=== PATIENT | male | born 1955 | race Caucasian/White ===

== ENCOUNTER 2017-09-12 15:34 | Inpatient (IN) | payer BC ==
[~2017-09-12] VITALS: Ht 165.1 cm; Wt 74.2 kg
[2017-09-12 16:40] LABS: BASOPHIL % 0.6 % (0-2); PLATELET COUNT 388 x10^3mcL (130-400)
[2017-09-12 16:45] LABS: RED CELL DISTRIBUTION WIDTH 17.1 % (11.5-14.5)
[2017-09-12 17:39] LABS: CALCIUM 9.2 mg/dL (8.5-10.1); CHLORIDE SERUM 98 mmol/L (98-107); CREATININE SERUM 2.4 mg/dL (0.7-1.3); GFR1 29 mL/min; GLUCOSE SERUM 242 mg/dL (74-106); POTASSIUM SERUM 3.1 mmol/L (3.5-5.1); SODIUM SERUM 141 mmol/L (136-145)
[2017-09-12 17:43] LABS: ALBUMIN 4.1 g/dL (3.4-5.0); ALKALINE PHOSPHATASE 85 U/L (46-116); ALT/SGPT 24 U/L (16-63); AST/SGOT 19 U/L (15-37); BILIRUBIN TOTAL 0.48 mg/dL (0.20-1.00); LIPASE 215 IU/L (73-393); TOTAL PROTEIN, SERUM 8.9 g/dL (6.4-8.2)
[2017-09-12 20:35] VITALS: BP 142/64
[2017-09-12 20:39] VITALS: Ht 165.1 cm; Wt 74.2 kg
[2017-09-12] MEDS ORDERED: EPO10I IV (21:11)
[2017-09-12] MEDS ORDERED: CARDIZEM CD240 MG PO (21:12)
[2017-09-12] MEDS ORDERED: COLACE100 MG PO (21:12)
[2017-09-12] MEDS ORDERED: LASIX20 MG PO (21:12)
[2017-09-12] MEDS ORDERED: NOVOLOG100 U/ML SQ (21:13)
[2017-09-12] MEDS ORDERED: COZAAR100 MG PO (21:13)
[2017-09-12] MEDS ORDERED: ROCALTROL0.25 MCG PO (21:13)
[2017-09-12] MEDS ORDERED: FERROUS SULFAT324 M1 PO (21:14)
[2017-09-12] MEDS ORDERED: PHARMASSURE FO0.4 MG PO (21:14)
[2017-09-12] MEDS ORDERED: LIPI10 PO (21:14)
[2017-09-12] MEDS ORDERED: PROTONIX40 MG PO (21:15)
[2017-09-12 21:25] VITALS: BP 142/64
[2017-09-12 22:27] LABS: FREE T4 1.16 ng/dL (0.76-1.46); FREE THYROXINE INDEX 3.7 ug/dL (1.4-4.5); T4(THYROXINE) 10.3 ug/dL (4.7-13.3)
[2017-09-12 22:28] LABS: T3 TOTAL 1.01 ng/mL
[2017-09-12 22:56] LABS: MAGNESIUM 2.1 mg/dL (1.8-2.4); PHOSPHOROUS 3.2 mg/dL (2.5-4.9)
[2017-09-12 23:01] LABS: CHOLESTEROL/HDL RATIO 4.4
[2017-09-13] VITALS (15 sets, daily range): BP systolic 129–199; BP diastolic 69–92
[2017-09-13 06:46] LABS: BASOPHIL % 0.9 % (0-2); PLATELET COUNT 355 x10^3mcL (130-400)
[2017-09-13 06:59] LABS: CALCIUM 8.7 mg/dL (8.5-10.1); CARBON DIOXIDE 30.4 mmol/L (21-32); CREATININE SERUM 3.3 mg/dL (0.7-1.3); MAGNESIUM 2.1 mg/dL (1.8-2.4); PHOSPHOROUS 3.4 mg/dL (2.5-4.9); POTASSIUM SERUM 3.9 mmol/L (3.5-5.1)
[2017-09-13 22:39] LABS: UA SPECIFIC GRAVITY 1.015 (1.005-1.035); microscopic required? YES; urine erythrocyte NEGATIVE (NEGATIVE)
[2017-09-13 22:50] LABS: AMPHETAMINE QUAL UR NONE DETECTED (NEG <=1000)
[2017-09-14 04:26] VITALS: BP 160/83
[2017-09-14 06:19] LABS: BASOPHIL % 0.6 % (0-2); PLATELET COUNT 367 x10^3mcL (130-400)
[2017-09-14 06:57] LABS: CALCIUM 8.7 mg/dL (8.5-10.1); CREATININE SERUM 3.9 mg/dL (0.7-1.3); MAGNESIUM 2.2 mg/dL (1.8-2.4); PHOSPHOROUS 4.5 mg/dL (2.5-4.9); POTASSIUM SERUM 4.3 mmol/L (3.5-5.1)
[2017-09-14 07:02] LABS: RED CELL DISTRIBUTION WIDTH 16.9 % (11.5-14.5)
[2017-09-14 09:39] VITALS: BP 189/89
[2017-09-14 13:09] VITALS: BP 150/76
[2017-09-14 17:29] VITALS: BP 134/76
[2017-09-14 20:46] VITALS: BP 129/75
[2017-09-15 05:57] VITALS: BP 154/80
[2017-09-15 06:25] LABS: BASOPHIL % 0.8 % (0-2); PLATELET COUNT 350 x10^3mcL (130-400)
[2017-09-15 06:44] LABS: RED CELL DISTRIBUTION WIDTH 17.2 % (11.5-14.5)
[2017-09-15 06:45] LABS: CALCIUM 8.9 mg/dL (8.5-10.1); CARBON DIOXIDE 25.5 mmol/L (21-32); CREATININE SERUM 3.3 mg/dL (0.7-1.3); MAGNESIUM 2.1 mg/dL (1.8-2.4); PHOSPHOROUS 4.6 mg/dL (2.5-4.9); POTASSIUM SERUM 4.3 mmol/L (3.5-5.1)
[2017-09-15 09:12] VITALS: BP 141/75
[2017-09-15 13:53] VITALS: BP 151/79
[2017-09-15 17:24] VITALS: BP 139/65
[2017-09-15 20:33] VITALS: BP 144/71
[2017-09-16 05:12] VITALS: BP 145/76
[2017-09-16 06:30] LABS: CARBON DIOXIDE 24.1 mmol/L (21-32); CREATININE SERUM 3.8 mg/dL (0.7-1.3); PHOSPHOROUS 4.4 mg/dL (2.5-4.9); POTASSIUM SERUM 4.5 mmol/L (3.5-5.1)
[2017-09-16 06:32] LABS: BASOPHIL % 0.5 % (0-2); PLATELET COUNT 362 x10^3mcL (130-400)
[2017-09-16 08:28] LABS: CHOLESTEROL/HDL RATIO 4.3
[2017-09-16 09:47] VITALS: BP 123/73
[2017-09-16 13:19] VITALS: BP 134/73
[2017-09-16 16:35] VITALS: BP 154/81
[2017-09-16 19:15] VITALS: BP 139/74
[2017-09-17 05:31] VITALS: BP 155/78
[2017-09-17 06:34] LABS: BASOPHIL % 0.7 % (0-2); PLATELET COUNT 333 x10^3mcL (130-400)
[2017-09-17 07:06] LABS: CALCIUM 8.9 mg/dL (8.5-10.1); CREATININE SERUM 3.2 mg/dL (0.7-1.3); MAGNESIUM 2.2 mg/dL (1.8-2.4); PHOSPHOROUS 3.6 mg/dL (2.5-4.9)
[2017-09-17 08:10] LABS: RED CELL DISTRIBUTION WIDTH 16.6 % (11.5-14.5)
[2017-09-17 09:41] VITALS: BP 150/79
[2017-09-17] MEDS ORDERED: MECLIZINE HYDRO25 M1 PO (11:17)
[2017-09-17 11:52] VITALS: BP 150/79
== END 2017-09-17 13:05 | disposition home health service (06) | DRG 77 ==
LOC: ED 15:34 → DU 19:40
PROVIDERS: Emergency Medicine; Family Medicine
DX: I67.4 Hypertensive encephalopathy (principal); N17.0 Acute kidney failure with tubular necrosis; N18.6 End stage renal disease; I12.0 Hypertensive chronic kidney disease with stage 5 chronic kidney disease or end stage renal disease; I42.0 Dilated cardiomyopathy; E87.8 Other disorders of electrolyte and fluid balance, not elsewhere classified; E11.22 Type 2 diabetes mellitus with diabetic chronic kidney disease; E11.65 Type 2 diabetes mellitus with hyperglycemia; D63.1 Anemia in chronic kidney disease; E78.1 Pure hyperglyceridemia; I25.10 Atherosclerotic heart disease of native coronary artery without angina pectoris; E78.00 Pure hypercholesterolemia, unspecified; Z53.29 Procedure and treatment not carried out because of patient's decision for other reasons; E87.6 Hypokalemia; Z68.28 Body mass index [BMI] 28.0-28.9, adult; Z99.2 Dependence on renal dialysis; Z79.4 Long term (current) use of insulin; Y84.1 Kidney dialysis as the cause of abnormal reaction of the patient, or of later complication, without mention of misadventure at the time of the procedure; Y92.538 Other ambulatory health services establishments as the place of occurrence of the external cause; Z79.899 Other long term (current) drug therapy; Z83.3 Family history of diabetes mellitus; Z90.5 Acquired absence of kidney
CPT/HCPCS: 82962; 83880; 84439; 97110-GP; 97116-GP; 97530-GP; A4719; G0480; J0360; J1644; J1815; J3490; J7030; J8597; Q0092; Q0162

== ENCOUNTER 2017-10-19 15:22 | Emergency (ER) | payer BC ==
[~2017-10-19] VITALS: Ht 172.7 cm; Wt 77.1 kg
[~2017-10-19 15:22] MED LIST: CARDIZEM CD240 MG PO; COLACE100 MG PO; COZAAR100 MG PO; EPO10I IV; FERROUS SULFAT324 M1 PO; LASIX20 MG PO; LIPI10 PO; MECLIZINE HYDRO25 M1 PO; NOVOLOG100 U/ML SQ; PHARMASSURE FO0.4 MG PO; PROTONIX40 MG PO; ROCALTROL0.25 MCG PO
[2017-10-19 15:29] VITALS: Ht 172.7 cm; Wt 77.1 kg
[2017-10-19 16:38] LABS: BASOPHIL % 0.8 % (0-2); PLATELET COUNT 311 x10^3mcL (130-400)
[2017-10-19 16:39] LABS: RED CELL DISTRIBUTION WIDTH 15.2 % (11.5-14.5)
[2017-10-19 16:45] LABS: CALCIUM 8.9 mg/dL (8.5-10.1); CREATININE SERUM 2.2 mg/dL (0.7-1.3); POTASSIUM SERUM 3.5 mmol/L (3.5-5.1)
[2017-10-19 21:06] VITALS: BP 171/80
== END 2017-10-19 21:06 | disposition home or self-care (01) ==
LOC: ED 15:22
PROVIDERS: Emergency Medicine
DX: E87.8 Other disorders of electrolyte and fluid balance, not elsewhere classified (principal); I12.0 Hypertensive chronic kidney disease with stage 5 chronic kidney disease or end stage renal disease; N18.6 End stage renal disease
CPT/HCPCS: 83880; J3010; J7030; Q0092

== ENCOUNTER 2018-05-29 13:20 | Emergency (ER) | payer BC ==
[~2018-05-29] VITALS: Ht 160 cm; Wt 68.0 kg
[2018-05-29 13:25] VITALS: Ht 160 cm; Wt 68.0 kg
[2018-05-29 14:44] LABS: CALCIUM 9.4 mg/dL (8.5-10.1); CARBON DIOXIDE 28.9 mmol/L (21-32); CREATININE SERUM 2.6 mg/dL (0.7-1.3); POTASSIUM SERUM 3.6 mmol/L (3.5-5.1)
[2018-05-29 14:49] LABS: ALBUMIN 3.7 g/dL (3.4-5.0); BILIRUBIN TOTAL 0.6 mg/dL (0.20-1.00); MAGNESIUM 2.1 mg/dL (1.8-2.4); PHOSPHOROUS 3.8 mg/dL (2.5-4.9)
[2018-05-29 14:51] LABS: BASOPHIL % 0.9 % (0-2); PLATELET COUNT 214 x10^3mcL (130-400)
[2018-05-29 14:55] LABS: RED CELL DISTRIBUTION WIDTH 16.3 % (11.5-14.5)
[2018-05-29] MEDS ORDERED: NEPHRO-VITE VITA1 EA PO (15:42)
[2018-05-29] MEDS ORDERED: FOL1 PO (15:42)
[2018-05-29] MEDS ORDERED: LIPI20 PO (15:43)
[2018-05-29] MEDS ORDERED: RENVELA800 M1 PO (15:43)
[2018-05-29] MEDS ORDERED: CARDIZEM CD240 MG PO (15:44)
[2018-05-29] MEDS ORDERED: ZYRTEC10 MG (15:45)
[2018-05-29] MEDS ORDERED: SENOKOT8.6 MG PO (15:45)
[2018-05-29] MEDS ORDERED: SINGULAIR10 MG PO (15:46)
[2018-05-29] MEDS ORDERED: LEVEMIR100 U/M1 (15:47)
[2018-05-29] MEDS ORDERED: NOVOLOG (15:48)
[2018-05-29] MEDS ORDERED: COLACE100 MG PO (15:49)
[2018-05-29] MEDS ORDERED: NORCO1 TA2 PO (15:49)
[2018-05-29 18:55] VITALS: BP 137/94
[2018-05-29 19:35] LABS: microscopic required? YES; urine erythrocyte 1+ (NEGATIVE)
== END 2018-05-29 18:55 | disposition short-term general hospital (02) ==
LOC: ED 13:20
PROVIDERS: Emergency Medicine
DX: I63.9 Cerebral infarction, unspecified (principal); R79.89 Other specified abnormal findings of blood chemistry; E11.22 Type 2 diabetes mellitus with diabetic chronic kidney disease; I12.9 Hypertensive chronic kidney disease with stage 1 through stage 4 chronic kidney disease, or unspecified chronic kidney disease; N18.9 Chronic kidney disease, unspecified; E78.5 Hyperlipidemia, unspecified
CPT/HCPCS: 36415; 82962; Q0092